=== PATIENT | female | born 1995 ===

== ENCOUNTER 2019-01-13 15:29 | Outpatient (REF) | payer MEDICAID, SELFPAY ==
[2019-01-13 22:51] LABS: Anion Gap 8.7 mmol/L (3-11); BUN 11 mg/dL (7-18); CO2 26.3 mmol/L (21.0-32.0); CREATININE 0.68 mg/dL (0.55-1.02); Calcium 9.1 mg/dL (8.5-10.1); Chloride 105 mmol/L (98-107); Glucose 72 mg/dL (70-100); Potassium 4.4 mmol/L (3.5-5.1); Sodium 140 mmol/L (136-145)
== END 2019-01-13 15:49 ==
LOC: NCHCN 15:29
PROVIDERS: PCP Nurse Practitioner Family; Visit Provider Nurse Practitioner Family
DX: I10 Essential (primary) hypertension (principal)
CPT/HCPCS: 80048

== ENCOUNTER 2019-03-24 12:51 | Outpatient (REF) | payer MEDICAID, SELFPAY ==
[2019-03-24 21:20] LABS: Anion Gap 8.1 mmol/L (3-11); BUN 14 mg/dL (7-18); CO2 26.9 mmol/L (21.0-32.0); CREATININE 0.79 mg/dL (0.55-1.02); Chloride 105 mmol/L (98-107); Glucose 86 mg/dL (70-100); Potassium 3.6 mmol/L (3.5-5.1); Sodium 140 mmol/L (136-145)
== END 2019-03-24 13:11 ==
LOC: NCHCN 12:51
PROVIDERS: PCP Nurse Practitioner Family; Visit Provider Nurse Practitioner Family
DX: I10 Essential (primary) hypertension (principal)
CPT/HCPCS: 80048

== ENCOUNTER 2020-01-11 20:46 | Outpatient (REF) | payer MEDICAID, SELFPAY ==
[2020-01-11 21:58] LABS: Anion Gap 10.9 mmol/L (3-11); BUN 13 mg/dL (7-18); CO2 28.1 mmol/L (21.0-32.0); CREATININE 0.67 mg/dL (0.55-1.02); Calcium 9.4 mg/dL (8.5-10.1); Chloride 102 mmol/L (98-107); Glucose 82 mg/dL (74-106); Potassium 3.5 mmol/L (3.5-5.1); Sodium 141 mmol/L (136-145)
[2020-01-11 22:01] LABS: HCG Quant, Pregnancy < 1 mIU/mL (1-3)
== END 2020-01-11 21:06 ==
LOC: NCHCN 20:46
PROVIDERS: PCP Nurse Practitioner Family; Visit Provider Nurse Practitioner Family
DX: N93.8 Other specified abnormal uterine and vaginal bleeding (principal); I10 Essential (primary) hypertension
CPT/HCPCS: 80048; 84702

== ENCOUNTER 2020-04-07 13:16 | Outpatient (REF) | payer MEDICAID, SELFPAY ==
[2020-04-07 20:56] LABS: Abs Immature Grans 0.01 k/cumm (0.0-0.09); Absolute Basophil Count 0.02 k/cumm (0.0-0.2); Absolute Eosinophil Count 0.09 k/cumm (0.0-0.7); Absolute Lymphocyte Count 3.38 k/cumm (1.2-3.4); Absolute Monocyte Count 0.54 k/cumm (0.11-0.7); Absolute Neutrophil Count 7.19 k/cumm (1.2-6.7); Basophils % 0.2; Eosinophils % 0.8; HCT 42.3 % (36.0-46.0); HGB 14.7 g/dL (12.0-15.5); Immature Grans % 0.1 %; Lymphocytes % 30.1; Mean Corp. HGB Concentration 34.8 g/dL (32.0-36.0); Mean Corpuscular Hemoglobin 30.6 pg (27.0-33.0); Mean Corpuscular Volume 88.1 fL (80-95); Mean Platelet Volume 10.5 fL (8.0-11.0); Monocytes % 4.8; Platelet Count 275 x1000/uL (130-400); RBC Distribution Width 12.3 % (11.7-14.6); White Blood Cell Count 11.23 k/cumm (4.4-10.8)
[2020-04-07 21:17] LABS: TSH (W/Ref FT4) 0.86 uIU/mL (0.36-3.74)
== END 2020-04-07 13:36 ==
LOC: NCHCN 13:16
PROVIDERS: PCP Nurse Practitioner Family; Visit Provider Nurse Practitioner Family
DX: R53.83 Other fatigue (principal); R61 Generalized hyperhidrosis; F32.9 Major depressive disorder, single episode, unspecified; F41.1 Generalized anxiety disorder; G43.009 Migraine without aura, not intractable, without status migrainosus
CPT/HCPCS: 84443; 85025

== ENCOUNTER 2021-06-15 15:41 | Outpatient (REF) | payer MEDICAID, SELFPAY ==
[2021-06-15 18:30] LABS: Anion Gap 11.9 mmol/L (3-11); BUN 12 mg/dL (7-18); CO2 25.1 mmol/L (21.0-32.0); CREATININE 0.8 mg/dL (0.55-1.02); Calcium 9.5 mg/dL (8.5-10.1); Chloride 103 mmol/L (98-107); Glucose 95 mg/dL (74-106); Potassium 3.5 mmol/L (3.5-5.1); Sodium 140 mmol/L (136-145)
[2021-06-15 18:34] LABS: Hemoglobin A1C 5.4 % (<5.7)
[2021-06-16 22:21] LABS: Calculated LDL 114 mg/dL (<100); Cholesterol 178 mg/dL (<200); HDL Cholesterol 47 mg/dL (40-60); Triglyceride 85 mg/dL (<150)
== END 2021-06-15 15:42 | disposition home or self-care (01) ==
LOC: NCHCN 15:41
PROVIDERS: PCP Nurse Practitioner Family; Visit Provider Nurse Practitioner Family
DX: Z13.1 Encounter for screening for diabetes mellitus (principal); Z13.220 Encounter for screening for lipoid disorders; F32.9 Major depressive disorder, single episode, unspecified; I10 Essential (primary) hypertension; D17.0 Benign lipomatous neoplasm of skin and subcutaneous tissue of head, face and neck; M54.6 Pain in thoracic spine; Z81.4 Family history of other substance abuse and dependence
CPT/HCPCS: 80048; 80061; 83036